=== PATIENT | male | born 2000 | race Caucasian/White ===

== ENCOUNTER 2022-06-22 17:06 | Emergency (ER) | payer SELFPAY ==
[~2022-06-22] VITALS: Ht 180.3 cm; Wt 70.5 kg
[2022-06-22 17:11] VITALS: TEMP 99.1
[2022-06-22 18:40] VITALS: BP 114/77; PULSE 81
== END 2022-06-22 18:41 | disposition home or self-care (01) ==
LOC: COL.ER 17:06
DX: S20.211A Contusion of right front wall of thorax, initial encounter (principal); V43.52XA Car driver injured in collision with other type car in traffic accident, initial encounter; Y92.410 Unspecified street and highway as the place of occurrence of the external cause
CPT/HCPCS: J1885